=== PATIENT | male | born 1950 | race Caucasian/White ===

== ENCOUNTER 2018-01-10 10:46 | Outpatient (CLI) | payer MEDICARE, BC ==
--- NOTE | 2018-01-10 15:12 | RAD ---
CHEST 2 VIEWS: DATE: 01/10/18. COMPARISON: Comparison is made with the 12/25/09 study. FINDINGS: The heart is normal in size and the lungs are clear. No infiltrate or effusion was seen. The medias tinum appears normal. The trachea deviates ever so slightly towards the left at the thoracic inlet w hich may or may not be significant. It might be well to examine his thyroid gland. The bony structu res show minor degenerative changes of the spine. IMPRESSION: No acute thoracic findings. POS: HOME
== END 2018-01-10 10:47 | disposition home or self-care (01) ==
LOC: BURRAD 10:46
PROVIDERS: ATTEND Family Medicine
DX: R05 Cough (principal); R06.02 Shortness of breath; Z87.891 Personal history of nicotine dependence
CPT/HCPCS: 71046